=== PATIENT | female | born 1945 | race Caucasian/White ===

== ENCOUNTER 2017-09-24 17:25 | Emergency (ER) | payer MEDICARE, OTHER ==
[2017-09-24 17:35] VITALS: BP 116/74
--- NOTE | 2017-09-24 18:02 | ERNOTE ---
Medical Problem HPI - Narrative Date of Service: 09/24/17 - General Chief Complaint: Laceration Time Seen by Provider: 09/24/17 17:37 Source: patient Exam Limitations: no limitations - Immun/Allergies/Home Medications Immunizations: IMMUNIZATION HX History of Influenza Vaccine No Hx Pneumococcal Vaccination Yes Allergies/Adverse Reactions: Allergies metoprolol succinate [From Toprol XL] Adverse Reaction (Verified 09/24/17 17:35) elevated LFT's Home Medications: HOME MEDICATIONS Omeprazole 1 cap PO DAILY 09/05/12 [Last Taken Unknown] Aspirin [Aspirin Enteric Coated] 81 mg PO BID 09/15/13 [Last Taken Unknown] Cholecalciferol (Vitamin D3) [Vitamin D3] 2,000 unit PO DAILY 09/15/13 [Last Taken Unknown] Flecainide Acetate [Tambocor] 100 mg PO DAILY 09/15/13 [Last Taken Unknown] Fluticasone Propionate [Flonase] 1 spray NS DAILY 09/15/13 [Last Taken Unknown] Levothyroxine Sodium [Synthroid] 150 mcg PO DAILY 09/15/13 [Last Taken Unknown] Multivitamins [Multivitamin Pedro Pablo] 1 cap PO DAILY 09/15/13 [Last Taken Unknown] Warfarin Sodium [Coumadin] 2 mg PO DAILY 09/15/13 [Last Taken Unknown] - History of Present History Narrative: Pt. comes in with c/o R hand scratch that occurred a week ago and then the scab came off tonight when she bumped it and the bleeding did not stop until she got her after 15 minutes of holding pressure.. Pt. is on coumadin and her INR yesterday was 2.2 as reported by pt. who tests at home with a home health machine and the results are relayed to her otolaryngology teacher. Pt. states that her last tetanus was 5 years ago. Pt. denies any SOB, CP, NVD, numbness or tingling. Timing: intermittent, resolved prior to arrival Severity: mild Modifying Factors - (Improves): Present: other - pressure Modifying Factors - (Worsens): Present: other - bumping Review of Systems - Review of Systems Constitutional: Present: no symptoms reported. Absent: fever, chills, weakness , fatigue, malaise EYE: Present: no symptoms reported ENT: Present: no symptoms reported Respiratory: Present: no symptoms reported. Absent: shortness of breath, cough , wheezing Cardiology: Present: no symptoms reported. Absent: chest pain, palpitations, edema Gastrointestinal/Abdominal: Present: no symptoms reported. Absent: nausea, vomiting, diarrhea Genitourinary: Present: no symptoms reported Musculoskeletal: Present: no symptoms reported. Absent: back pain, joint pain Skin: Present: other - avulsion of skin on hand Neurological: Present: no symptoms reported. Absent: headache, dizziness/light- headedness, numbness, tingling All Other Systems: All systems neg except as marked - Patient's Past Medical History Patient History - Medical: No pertinent hx Patient History - Cardiac/Respiratory: Other Patient History - Cancer: No Hx of Cancer Patient History - Surgical Procedures: Pacemaker Patient History - Other: None - Social History Living Situations: home Psych History: No pertinent hx Alcohol Use: none Drug Use: none - Immunizations Hx Pneumococcal Vaccination: Yes History of Influenza Vaccine: No Physical Exam - Physical Exam General Appearance: Present: wd/wn, alert, no apparent distress Head Exam: Present: normal inspection, no evidence of injury Eye Exam: Normal inspection: bilateral Respiratory: Present: no respiratory distress, normal breath sounds, no accessory muscle use, chest nontender, lungs clear Cardiovascular/Chest: Present: regular rate, rhythm, no murmur, normal peripheral pulses Back Exam: Present: normal inspection Extremity Exam: Present: non-tender, normal range of motion, no edema, other - deep skin avulsion 0.3cm x 0.4cm sanguinous drainage just over vein in hand Neurological Exam: Present: alert, oriented, normal mood/affect, no motor/ sensory deficits, floor layer helper II-XII nml as tested, normal cerebellar test Skin Exam: Present: normal color, warm/dry, other - avulsion as described above. Absent: pallor, skin rash ED Progress - Vital Signs Patient's Vital Signs:: I have reviewed the patient's vital signs. Vital Signs: Vital Signs 09/24/17 17:30 Temperature 36.8 C Pulse Rate 71 Respiratory 12 Rate Blood Pressure 116/74 O2 Sat by Pulse 96 Oximetry - Progress/Reassessment Chief Complaint: Laceration Procedures Right Dorsal Hand Date and Time: 09/24/2017 at 1745 I & D Prep: betadine prep Length of Repair/Wound (cm): 0.3 Wound's Depth/Shape: superficial, other - skin avulsion Wound Explored: clean, to base Wound Intervention: irrigated w/saline Distal NVT: neuro/vasc intact Wound Repaired With: Dermabond Layer Closure: Simple Wound Dressing: sterile dressing applied Complications: Pt corrine procedure well Departure Clinical Impression: Avulsion of skin of hand Qualifiers: Encounter type: initial encounter Laterality: right Qualified Code(s): S61.401A - Unspecified open wound of right hand, initial encounter - Departure Disposition: Home self-care Condition: Good Instructions: Deep Skin Avulsion Additional Instructions: Please follow up with Dr Rivera as needed and please change dressing in 24 hours. Please keep wound clean and dry. Referrals: Maria M Rivera MD [Primary Care Provider] -
== END 2017-09-24 18:05 | disposition home or self-care (01) ==
LOC: ER 17:25
PROC: 0HQFXZZ Repair Right Hand Skin, External Approach (ICD-10-PCS; principal; 2017-09-24)
DX: S61.401A Unspecified open wound of right hand, initial encounter (principal); Z95.0 Presence of cardiac pacemaker; Z79.01 Long term (current) use of anticoagulants; W22.8XXA Striking against or struck by other objects, initial encounter